=== PATIENT | male | born 1985 | race Caucasian/White ===

== ENCOUNTER 2022-01-13 16:29 | Emergency (ER) | payer SELFPAY ==
[2022-01-13 16:57] VITALS: BP 124/85; PULSE 156; RESP 16; TEMP 36.9; O2SAT 97
--- NOTE | 2022-01-13 17:02 | ECG_ITS ---
Measurements Intervals [place] Rate: 146 P: 51 VT: 150 QRS: 6 QRSD: 86 T: 46 QT: 269 QTc: 420 Interpretive Statements SINUS TACHYCARDIA, POSSIBLE ATRIAL FLUTTER NO PREVIOUS ECG AVAILABLE FOR COMPARISON Electronically Signed On 01-14-2022 11:35:58 CDT by Drew Jo M.D.
[2022-01-13 20:35] VITALS: BP 138/104; PULSE 144; RESP 18; TEMP 36.4; O2SAT 98
[2022-01-14 00:05] VITALS: BP 133/105; PULSE 120; RESP 13; O2SAT 98
--- NOTE | 2022-01-14 02:02 | ED.URI ---
HPI - URI/Sore Throat General Chief Complaint: Upper Respiratory Infection Stated Complaint: sore throat Time Seen by Provider: 01/14/22 01:40 History of Present Illness HPI Narrative: This is a 37-year-old male, with past medical history of alcohol abuse, anxiety, prior history of COVID-19, who presents to emergency department complaining of severe sinus pain. He describes the pain as 10/10, pressure and sharp, associated with upper respiratory congestion and sore throat. He states he has had sore throat and congestion for several months, and intermittent severe sinus pain requiring antibiotics most recently 2 to 3 months ago. He also states he drinks alcohol approximately 1 pint a day with last drink last night. He states he has had alcohol withdrawal without seizures previously. He has no other complaints today Related Data Allergies Allergy/AdvReac Type Severity Reaction Status Date / Time No Known Allergies Allergy Unverified 07/06/17 20:42 Review of Systems Review of Systems: CONSTITUTIONAL: Denies fever, chills, or sweats. EYES: Denies visual changes, redness, or discharge. ENT:+rhinorrhea, congestion, sore throat, or otalgia. CARDIOVASCULAR: Denies chest pain, palpitations, or edema. RESPIRATORY: Denies cough or dyspnea. GASTROINTESTINAL: Denies abdominal pain, nausea, vomiting, or diarrhea. GENITOURINARY: Denies dysuria or hematuria. SKIN: Denies rash or itching. MUSCULOSKELETAL: Denies back pain, joint pain, or myalgia. NEUROLOGIC: headache, Denies numbness, dizziness, or weakness. PSYCHIATRIC: +anxiety, Denies or depression. Denies SI/HI Exam Narrative: GENERAL: Well-appearing, well-nourished, appears uncomfortable and tremulous HEAD: Normocephalic, atraumatic. EYES: PERRLA and EOMI. ENT: Mild tenderness palpation over the bilateral maxillary and frontal sinuses. Nares clear, no rhinorrhea or epistaxis. Mucous membranes moist. Oropharynx with mild erythema but no tonsillar hypertrophy exudate or other lesions. Bilateral TMs pearly velasco nonbulging NECK: Supple. No adenopathy or masses. No carotid bruits or JVD CHEST: Clear to auscultation. No respiratory distress. No wheezes rales or rhonchi HEART: Tachycardic with regular rhythm. No murmur heard. Normal peripheral pulses. ABDOMEN: Soft, nontender, nondistended, normal active bowel sounds. EXTREMITIES: Normal range of motion. No edema. SKIN: Warm, dry, no rash. NEURO: No focal deficits. Alert and oriented x3. PSYCH: Normal mood and affect. Course Vital Signs Vital signs: Vital Signs Temperature 98.4 F 01/13/22 16:57 Pulse Rate 156 H 01/13/22 16:57 Respiratory Rate 16 01/13/22 16:57 Blood Pressure 124/85 01/13/22 16:57 Pulse Oximetry 97 01/13/22 16:57 Oxygen Delivery Room Air 01/13/22 16:57 Temperature 97.5 F L 01/13/22 20:35 Pulse Rate 113 H 01/14/22 03:26 Respiratory Rate 16 01/14/22 02:11 Blood Pressure 148/103 H 01/14/22 02:11 Pulse Oximetry 100 01/14/22 03:26 Oxygen Delivery Room Air 01/14/22 02:11 MDM - URI/Sore Throat MDM Narrative Medical decision making narrative: Plan: Pain control, rapid strep, reassess Differential Diagnosis Differential diagnosis: Likely sinusitis, viral infection and other (Alcohol withdrawal, anxiety, other) Lab Data Labs: Strep Screen Presumptive Negative *(Reference Range: Negative)* Discharge Plan Discharge Clinical Impression: Alcohol withdrawal, Tachycardia, Pain of maxillary sinus Patient Disposition: Home, Self-Care Condition: Stable Instructions: Antibiotic Form, Sinusitis (ED) Additional Instructions: You were seen in the emergency department. A rapid strep was negative. We will start you on doxycycline, I recommend following up with a primary care doctor and potentially an ear nose and throat surgeon. If you develop weakness/numbness, loss of consciousness, or other emergent concerns fo
[2022-01-14 02:11] VITALS: BP 148/103; PULSE 125; RESP 16; O2SAT 98
[2022-01-14] MEDS: KETOROLAC 30 MG/ML VIAL (*BKC) IM (02:12)
[2022-01-14] MEDS: chlordiazePOXIDE (*CRX) 25 MG CAPSULE 50 MG PO (03:10)
[2022-01-14 03:26] VITALS: PULSE 113; O2SAT 100
== END 2022-01-14 03:20 | disposition home or self-care (01) ==
PROVIDERS: Emergency Provider Preventive Medicine Aerospace Medicine
DX: F10.230 Alcohol dependence with withdrawal, uncomplicated (principal); R00.0 Tachycardia, unspecified; R51.9 Headache, unspecified; Z86.16 Personal history of COVID-19
CPT/HCPCS: 87081; 87880; 93005; 96372; 99283; A9270; J1885

== ENCOUNTER 2023-07-23 16:30 | Emergency (ER) | payer OTHER, SELFPAY ==
[2023-07-23 16:24] VITALS: BP 142/62; PULSE 124; RESP 18; TEMP 36.8; O2SAT 98
--- NOTE | 2023-07-23 16:52 | ECG_ITS ---
Measurements Intervals [place] Rate: 95 P: 61 MI: 182 QRS: 31 QRSD: 91 T: 32 QT: 335 QTc: 421 Interpretive Statements SINUS RHYTHM WITHIN NORMAL LIMITS COMPARED TO ECG 01/13/2022 17:16:27 HEART RATE REDUCED, NO OTHER CHANGE Electronically Signed On 07-24-2023 7:09:32 [employer] by Bryan Herr M.D.
--- NOTE | 2023-07-23 17:50 | PC.NURSE ---
will not answer all my questions, first refused to have labs then family member arrived and talked him into have blood drawn
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
[2023-07-23 18:00] LABS: Basophils Absolute Auto 0.1 K/mm3 (0.0-0.1); Basophils Percent Auto 0.4 % (0.2-1.2); Eosinophils Percent Auto 0.1 % (0-4.4); Hematocrit 43.5 % (42.0-52.0); Hemoglobin 14.6 g/dL (14.0-18.0); Immature Granulocyte Absolute 0.04 K/mm3 (0.00-0.031); Immature Granulocyte Percent A 0.3 % (0-0.5); Lymphocytes Absolute Auto 0.71 K/mm3 (0.9-3.2); Lymphocytes Percent Auto 4.9 % (18.3-44.2); Mean Corpuscular HGB Conc 33.6 g/dl (32-36); Mean Corpuscular Hemoglobin 31.6 pg (26-34); Mean Corpuscular Volume 94.2 fl (80-100); Mean Platelet Volume 8.7 fl (7.4-10.4); Monocytes Absolute Auto 0.9 K/mm3 (0.1-0.6); Monocytes Percent Auto 5.9 % (2.6-8.5); Neutrophils Absolute Auto 12.8 K/mm3 (1.3-6.7); Neutrophils Percent Auto 88.4 % (45.5-73.1); Platelet Count Result 317 k/mm3 (150-375); Red Blood Count 4.62 M/mm3 (4.6-6.20); Red Cell Distribution Width 12.3 % (11.5-14.5); White Blood Count 14.4 K/mm3 (4.5-10.0)
[2023-07-23 18:10] LABS: Ethanol < 10 mg/dL (<10)
[2023-07-23 18:13] LABS: Acetaminophen < 10 ug/mL (10-30); Salicylate < 1.0 mg/dL (2-20)
[2023-07-23 18:24] LABS: Alanine Aminotransferase 49 U/L (6-50); Albumin Level 4.7 g/dL (3.5-5.1); Alkaline Phosphatase 75 U/L (38-126); Anion Gap 10 mmol/L (8-16); Aspartate Amino Transferase 61 U/L (17-59); Bilirubin,Total 0.8 mg/dL (0.2-1.3); Blood Urea Nitrogen 7 mg/dL (9-20); Calcium 9.5 mg/dL (8.4-10.2); Carbon Dioxide 25 mmol/L (22-30); Chloride 100 mmol/L (98-107); Estimated CRCL calculation 106 ml/min; Estimated Glomerular Filt Rate > 60; Glucose 133 mg/dL (65-110); Potassium 3.1 mmol/L (3.4-5.0); Sodium 135 mmol/L (137-145)
[2023-07-23 18:58] LABS: Amphetamine Screen Urine Positive (Negative); Barbiturate Screen Urine Negative (Negative); Benzodiazepines Screen Urine Positive (Negative); Cannabinoid Screen Urine Positive (Negative); Cocaine Screen Urine Negative (Negative); Methadone Screen Urine Negative (Negative); Opiate Screen Urine Negative (Negative); Phencyclidine Screen Urine Negative (Negative)
[2023-07-23 19:08] LABS: Appearance Urine Clear (Clear); Bilirubin Urine Negative (Negative); Blood Urine Negative (Negative); Color Urine Yellow (Yellow); Glucose Urine UA Negative (Negative); Ketones Urine Negative (Negative); Leukocyte Esterase Ur Negative LEU/UL (Negative); Nitrate Urine Negative (Negative); Protein Urine Negative (Negative); Specific Grav Ur 1.008 (1.001-1.035); Urobilinogen Urine 0.2 mg/dL (<2.0)
[2023-07-23 19:45] LABS: Add Urine Microscopic? NO
--- NOTE | 2023-07-23 21:47 | PC.NURSE ---
called crisis about pt. requesting for COVID swab to be completed and then to give them a call back when it has resulted.
[2023-07-23] MEDS: POTASSIUM CHLORIDE 20 MEQ PACKET (FOR LIQUID) 40 MEQ PO (22:01)
[2023-07-23 22:38] LABS: SARS-CoV-2 RNA PCR Negative (Negative)
--- NOTE | 2023-07-23 23:14 | PC.NURSE ---
Assumed care of pt from IRVIN Messer at this time.
[2023-07-24] MEDS: LORazepam INJ (*CRX) 2 MG/ML VIAL 1 MG IM (01:02)
[2023-07-24] MEDS: NICOTINE (*PBKC) 21 MG PATCH 1 PATCH TRANSDERM ×2 (01:32→16:04)
[2023-07-24] MEDS: KETOROLAC 30 MG/ML VIAL (*BKC) IM (01:55)
[2023-07-24 03:00] VITALS: BP 139/70; PULSE 120; RESP 17; O2SAT 100
--- NOTE | 2023-07-24 03:20 | PC.NURSE ---
Pt continuously calling out for at home meds of trazadone and xanax. EDP aware.
--- NOTE | 2023-07-24 03:30 | PC.NURSE ---
This RN spoke xander Mack from [facility]. [facility]
[2023-07-24] MEDS: HALOPERIDOL LACTATE 5 MG/ML VIAL IM (04:02)
--- NOTE | 2023-07-24 06:27 | PC.NURSE ---
IRVIN Calderón spoke to [facility] whom stated they deferred pt. Provider at [facility] believes sx of psychosis are drug induced and that we should allow pt to Sober up and call back if needed.
--- NOTE | 2023-07-24 08:01 | PC.NURSE ---
Pt father at bedside.
[2023-07-24 12:27] VITALS: BP 117/75; PULSE 89; RESP 16; O2SAT 98
--- NOTE | 2023-07-24 19:42 | PC.NURSE ---
Assume care of pt. Report from IRVIN Tovar. Pt resting quietly per cart in nad at this time, appears to be trying to sleep. Resp even and nonlabored. Father at bedside. Sitter within line of sight.
--- NOTE | 2023-07-24 23:38 | PC.NURSE ---
Pt being discharged. Ok with reaching out to his father for a ride. No answer on father's phone. Left .
[2023-07-24 23:46] VITALS: BP 127/89; PULSE 92; RESP 16; TEMP 36.4; O2SAT 100
== END 2023-07-24 23:47 | disposition home or self-care (01) ==
PROVIDERS: Student in an Organized Health Care Education/Training Program; Emergency Provider Emergency Medicine
DX: F22 Delusional disorders (principal); E87.6 Hypokalemia; F19.10 Other psychoactive substance abuse, uncomplicated; Z11.52 Encounter for screening for COVID-19
CPT/HCPCS: 36415; 80053; 80307; 81003; 84443; 85025; 87635; 93005; 96372; 99284; A9270; J1630; J1885; J2060